=== PATIENT | male | born 1960 | race Two or more races ===

== ENCOUNTER 2024-08-24 06:37 | Emergency (ER) | payer MEDICAID, SELFPAY ==
[2024-08-24] VITALS (8 sets, daily range): BP systolic 157–179; BP diastolic 101–147; PULSE 103–114; RESP 18–24; TEMP 36.5–36.8; O2SAT 93–98; BMI 39.4
--- NOTE | 2024-08-24 06:50 | EKG_ITS ---
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1960 Requested By: Corby Colin Order Number: [id number] Reading MD: Corby Colin Measurements Intervals [place] Rate: 103 P: 66 SD: 183 QRS: 0 QRSD: 114 T: 79 QT: 377 QTc: 496 Interpretive Statements SINUS TACHYCARDIA WITH OCCASIONAL VENTRICULAR PREMATURE COMPLEXES WITH OCCASIONAL SUPRAVENTRICULAR PREMATURE COMPLEXES MODERATE INTRAVENTRICULAR CONDUCTION DELAY [110+ ms QRS DURATION] NONSPECIFIC T-WAVE ABNORMALITY ABNORMAL RHYTHM ECG Compared to ECG 08/07/2019 09:29:42 Ventricular premature complex(es) now present Intraventricular conduction delay now present Sinus rhythm no longer present Atrial abnormality no longer present T-wave abnormality still present /store/S0/[id number].pdf
--- NOTE | 2024-08-24 06:50 | XR_ITS ---
Examination: PA lateral chest 2 views TECHNIQUE: Upright PA lateral chest 2 views Exam date and time: August 24, 2024 0751 hours Comparison September 25, 2023 INDICATIONS: Shortness of breath dizziness beginning 3 weeks ago FINDINGS: Mild enlargement cardiac contour Prominent vascular congestion Fluid in the fissure on the lateral view No lobar pneumonia Intact osseous structures IMPRESSION: Mild heart failure
--- NOTE | 2024-08-24 06:51 | PD.EDRME ---
Rapid Medical Screening Exam [facility] Arrival date/time: 08/24/24 06:37 64-year-old male with a history of congestive heart failure presents to the emergency room with a chief complaint of shortness of breath x 1 month that is progressively gotten worse this last week. Patient states he is taking Lasix but his shortness of breath has not gotten better. Patient also states he feels chest tightness. I have greeted and performed a focused initial assessment of this patient. A comprehensive ED assessment and evaluation of the patient, analysis of all test results, and completion of the medical decision making process will be conducted by additional ED providers. Chief Complaint: Chest Pain Time Seen by Provider: 08/24/24 06:40 Vital signs: Vital Signs Temperature 98.0 F 08/24/24 06:46 Pulse Rate 110 H 08/24/24 06:46 Respiratory Rate 24 H 08/24/24 06:46 Blood Pressure 164/101 H 08/24/24 06:46 Pulse Oximetry (%) 96 08/24/24 06:46 Oxygen Delivery Method Room Air 08/24/24 06:46 Vital signs reviewed by provider: Yes
[2024-08-24 07:35] LABS: Basophils # (Auto) 0.1 Thou/mm3 (0.0-0.2); Basophils % (Auto) 1 % (0-2.5); Eosinophils # (Auto) 0.4 Thou/mm3 (0.0-0.5); Eosinophils % (Auto) 4 % (0-10); Hematocrit 40.2 % (41.0-53.0); Hemoglobin 13.5 g/dL (13.5-16.0); Immature Granulocytes % (Auto) 0 % (0-0); Immature Granulocytes Auto 0.02 Thou/mm3 (0.00-0.00); Lymphocytes # (Auto) 1.6 Thou/mm3 (1.0-4.8); Lymphocytes % (Auto) 18 % (10-50); Mean Corpuscular HGB Conc 33.6 g/dl (31.0-37.0); Mean Corpuscular Hemoglobin 27.9 pg (25.0-35.0); Mean Corpuscular Volume 83 fL (80-100); Monocytes # (Auto) 0.8 Thou/mm3 (0.0-0.8); Monocytes % (Auto) 9 % (0-12); Neutrophils # (Auto) 6.2 Thou/mm3 (1.8-7.7); Neutrophils % (Auto) 68 % (37-80); Nucleated Red Blood Cell % 0 /100 WBC (0); Platelet Count 217 Thou/mm3 (140-440); RDW Standard Deviation 43.9 fL (35.1-43.9); Red Blood Count 4.84 Miln/mm3 (4.50-5.90); White Blood Count 9.1 Thou/mm3 (3.8-10.6)
[2024-08-24 07:50] LABS: INR 1.2 (0.9-1.3); Partial Thromboplastin Time 28.4 Seconds (22.0-36.0)
[2024-08-24 08:40] LABS: Alanine Aminotransferase 21 U/L (10-49); Albumin, Serum 4.3 gm/dL (3.4-4.8); Albumin/Globulin Ratio 1.4 (1.2-2.2); Alkaline Phosphatase 79 U/L (46-116); Anion Gap 11 (7-16); Aspartate Amino Transferase 35 U/L (0-34); B-Type Natriuretic Peptide 482 pg/mL (0-100); BUN/Creatinine Ratio 14 Ratio (12-20); Bilirubin,Total 0.8 mg/dL (0.3-1.2); Blood Urea Nitrogen 19 mg/dL (9-23); Calcium 10.3 mg/dL (8.3-10.6); Calcium (Corrected) 10.3 mg/dL (8.5-10.1); Carbon Dioxide 24.8 mMol/L (20.0-31.0); Chloride 105 mMol/L (98-107); Creatinine (Component) 1.4 mg/dL (0.6-1.3); Estimated Creatinine Clearance 59.8 mL/min (>60); Globulin 3.1 gm/dL (2.3-3.5); Glucose 103 mg/dL (74-106); Magnesium 1.9 mg/dL (1.6-2.6); Osmolality,Calculated 283 (275-295); Potassium 4.2 mMol/L (3.4-5.1); Sodium 141 mMol/L (136-145); Total Protein 7.4 gm/dL (5.7-8.2); eGFR 57 See Note
[2024-08-24 08:43] LABS: Troponin I 0.097 ng/mL (0.0-0.045)
--- NOTE | 2024-08-24 10:02 | PC.NURSE ---
PT HERE WITH C/O DIZZINESS WITH N/V ON AND OFF FOR 1 MONTH. STATES I RN OUT OF MY BP MEDICATION AND SINCE THEY KEEP SWITCHING WHICH DOCTOR I SEE I HAVEN'T GONE BACK. INFORMED OF THE IMPORTANCE OF SEE A DOCTOR AND TO NOT QUIT TAKING BP MEDICATIONS.
[2024-08-24 10:05] LABS: Collection Type, Urine Clean Catch
--- NOTE | 2024-08-24 10:12 | PC.NURSE ---
CALL FROM [facility] IN LAB W/ TROP 0.97. PUT IN NOTES.
[2024-08-24 10:25] LABS: Bilirubin,Urine Negative (Negative); Blood,Urine Negative (Negative); Clarity,Urine Clear (Clear/Hazy); Color,Urine Lt-Yellow (Lt Yel-Yel); Glucose, Urine Negative (Negative); Ketones,Urine Negative (Negative); Leukocyte Esterase,Urine Negative (Negative); Nitrite,Urine Negative (Negative); PH,Urine 6.5 (5.0-7.0); Protein,Urine 1+ (Neg - Trace); RBC,Urine 3 /hpf (0-3); Specific Gravity,Urine 1.018 (1.001-1.035); Squamous Epithelial Cell,Urine < 1 /hpf (0-5); Urobilinogen,Urine Negative mg/dL (0.0-1.0); WBC,Urine 1 /hpf (0-5)
[2024-08-24 10:50] LABS: Amphetamine/Methamp Scrn,U Positive (Negative); Barbiturate Screen,Urine Negative (Negative); Benzodiazepines Screen,Urine Negative (Negative); Benzoylecgonine Screen, Ur Negative (Negative); Fentanyl Screen,Urine Negative (Negative); Opiate Screen,Urine Negative (Negative); THC Screen,Urine Negative (Negative)
--- NOTE | 2024-08-24 10:58 | PC.CC ---
Patient is a 64 year-old male who presents to the hospital for SOB, Chest Tightness, Dizzy. Shantal HERZOG made gfxy-bh-nyge contact with patient. ASW introduced self, role, and reason for visit. Patient appeared alert and oriented to self, location, and situation. Patient was pleasant and engaged in initial assessment. Patient reports he lives at home with his , Teresita Ingram . Patient report his would be his medical decision maker in the event he is unable to make his own medical decisions. Patient reports at home he is able to ambulate independently and complete his own ADLs. Patient does not use any DME at home. Patient receives primary care with Jose Antonio Schaffer and uses [facility] on [address] for prescription medications. Upond discharge the patient plans to return back home. child protective services social worker to follow up with any discharge needs.
--- NOTE | 2024-08-24 11:16 | PC.NURSE ---
PT WITH C/O CHEST PAIN AND DIFF BREATHIG NOW. REPEAT EKG DONE. DR. GONZALEZ OFF UNIT AND WILL INFORM MD WHEN BACK
--- NOTE | 2024-08-24 11:18 | EKG_ITS ---
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
--- NOTE | 2024-08-24 11:48 | PD.EDADULT ---
ED General RME/HPI General Chief complaint: Chest Pain Stated complaint: SOB, CHEST TIGHTNESS, DIZZY Time Seen by Provider: 08/24/24 06:40 Arrival date/time: 08/24/24 06:37 RME / HPI RME / HPI narrative: Patient is a 64 years old male with PMH of congestive heart failure, hypertension, meth use presented to the ED complaining of shortness of breath for 1 month that is progressively gotten worse within the last several days. He reports he stopped using meth several months ago but accidentally snored it 2 days ago. He reports his SOB got significantly worse after it prompting him to come to the ED. He also reports dull chest discomfort for the last several days. He denies fever, chills, abdominal pain, nausea, vomiting, diarrhea, diaphoresis. He reports he is compliant with his home medications including Lasix. Related Data Previous Rx's ?Medication ?Instructions ?Recorded furosemide 40 mg tablet 40 mg PO QDAY #3 tabs 09/25/23 potassium chloride 20 mEq oral 20 meq PO QDAY #3 ea 09/25/23 packet Allergies Allergy/AdvReac Type Severity Reaction Status Date / Time No Known Allergies Allergy Verified 08/06/19 14:57 Review of Systems Review of Systems Systems Reviewed: All systems reviewed, normal except as documented ED Exam Narrative Physical exam: Gen: Well-developed and well-nourished obese male. HEENT: NCAT, PERRLA, EOMI, MMM, anicteric conjunctivae. CVS: normal S1 and S2. Regular tachycardia. No M/R/G. Resp: mild crackles B/L. No rhonchi, rales or wheezing. Abd: soft, obese, non-tender, non-distended. BS+ in all 4 quadrants. MSK: Good ROM in BUE & BLE. No edema or rash. Neuro: CN II-XII grossly intact. Strength 5/5 in BUE & BLE. Alert and oriented x3. Course Course Course Narrative: 0657: EKG showed sinus tachycardia with non-specific ST changes. CXR showed CHF pattern. 0720: Troponin I 0.097. 1121: repeat EKG showed sinus tachycardia with non-specific ST changes. 1230: Lasix 40 mg IV and nitro patch given. 1300: Troponin I 0.087. 1500: patient reports his symptoms improved significantly, he is not short of breath anymore and denies chest pain. Clinically he looks more comfortable, RR 18, heart rate in 90s, BP 160/100. Quality Measures none Orders Category Date Time Status Bedside COVID-19 Antigen Test NOW Care 08/24/24 06:50 Active Bedside Influenza A&B Antigen Test NOW Care 08/24/24 06:50 Completed EKG (ED ONLY) *Do not use* NOW Care 08/24/24 06:50 Completed EKG (ED ONLY) *Do not use* NOW Care 08/24/24 11:18 Completed Strict Intake and Output Routine Care 08/24/24 11:44 Ordered EKG (ED Only) Stat Exams 08/24/24 06:50 Draft EKG (ED Only) Stat Exams 08/24/24 11:18 Draft XR chest 2V Stat Exams 08/24/24 06:50 Completed B-Type Natriuretic Peptide Stat Lab 08/24/24 07:20 Completed CBC Stat Lab 08/24/24 07:20 Completed Comprehensive Metabolic Panel Stat Lab 08/24/24 07:20 Completed Drug Screen,Urine Stat Lab 08/24/24 09:55 Completed Magnesium Stat Lab 08/24/24 07:20 Completed Partial Thromboplastin Time Stat Lab 08/24/24 07:20 Completed Prothrombin Time with INR Stat Lab 08/24/24 07:20 Completed Troponin I Stat Lab 08/24/24 07:20 Completed Troponin I Stat Lab 08/24/24 12:58 Completed Urinalysis Stat Lab 08/24/24 09:55 Completed Furosemide Inj [Lasix Inj] Med 08/24/24 11:43 Discontinued 40 mg IVP X1 ONE Nitroglycerin Oint 2% [Nitro-paste Oint 2%] Med 08/24/24 12:19 Discontinued 2 inch TOP X1 ONE Nitroglycerin [Nitro-dur Patch] Med 08/24/24 11:43 Discontinued 0.4 mg TOP X1 ONE Vital Signs Vital signs: Vital Signs Temperature 98.0 F 08/24/24 06:46 Pulse Rate 110 H 08/24/24 06:46 Respiratory Rate 24 H 08/24/24 06:46 Blood Pressure 164/101 H 08/24/24 06:46 Pulse Oximetry (%) 96 08/24/24 06:46 Oxygen Delivery Method Room Air 08/24/24 06:46 Procedures -ED EKG Interpretation #1: Date of EK08/24/24 Time of EK:57 Rate: 103 Interpretation: Reviewed by me EKG Impression: PVCs, Sinus tachycardia and Non-specific ST-T #2: Date of EK08/24/24 Time of EK:21 Rate: 100 Interpretation: Reviewed by me EKG Impression: PVCs, Sinus tachycardia and Non-specific ST-T MDM Patient data External records reviewed:: [facility] previous records Clinical information provided by:: patient and family Social determinants that could affect healthcare access:: substance use Patient has the following chronic illnesses:: congestive heart failure, hypertension, meth use How is presenting disease/condition affected by chronic disease/condition?: caused by Evaluation data The following diagnostics were reviewed and interpreted by me:: lab results, radiology exam(s) and EKG tracing(s) Lab and/or radiology exams considered but not ordered:: CTA Interpretation Summary: CHF exacerbation, troponinemia (downtrended), meth positive. Medications Medications considered but not ordered:: aspirin Medication administrations:: Medication Administration History Discontinued Medications Furosemide (Furosemide Inj 10 Mg/Ml 4ml Vial) 40 mg IVP X1 ONE Stop: 08/24/24 11:44 Last Admin: 08/24/24 12:25 Dose: 40 mg Documented By: YAZMIN Nitroglycerin (Nitroglycerin 0.4 Mg/Hr Patch.Td24) 0.4 mg TOP X1 ONE Stop: 08/24/24 11:44 Last Admin: 08/24/24 12:20 Dose: Not Given Documented By: YAZMIN Non-Admin Reason: Cancelled by Provider Nitroglycerin (Nitroglycerin Oint 2% 1 Inch Packet) 2 inch TOP X1 ONE Stop: 08/24/24 12:20 Last Admin: 08/24/24 12:23 Dose: 2 inch Documented By: YAZMIN as above Consultations Consultation(s) initiated? (list below): No Diagnosis Differential Diagnosis ED Complaint MDM: CHF, CAP, ACS, pericarditis Most likely diagnosis given after review of the tests above:: CHF exacerbation Admission Indicated Admission indicated?: not indicated Explain why admission is indicated or not indicated:: Patient's symptoms are likely related to meth abuse and CHF exacerbation as a result of it. His condition significantly improved after Lasix 40 mg IV and troponin I dpwntrended. He will need to follow up with cardiology as soon as possible for CHF therapy optimization. He was instructed to increase his Lasix 20 mg daily to twice daily for 1 week. Admission Request Was there a request for admission?: No Disposition Plan Disposition Plan: Discharge Discharge Attestation Discharge Attestation: The patient and all family members were given an opportunity to ask questions and understood the discharge instructions. Discharge instructions specifically effects, indications for sooner follow up or return to the emergency department, and the expected course of current diagnosis. Patient condition: Stable Medical Decision Making MDM Narrative MDM Narrative: This 64-year-old male with a history of congestive heart failure, hypertension, and methamphetamine use presented with progressively worsening shortness of breath over the past month, exacerbated after meth use 2 days ago. His symptoms were also accompanied by dull chest discomfort. Evaluation revealed sinus tachycardia with nonspecific ST changes on EKG, mild crackles on exam, and a CHF pattern on chest X-ray. Troponin levels were mildly elevated but trended downward after treatment, indicating no acute cardiac ischemia. His symptoms improved significantly following administration of IV Lasix and a nitroglycerin patch. The patient's condition is likely due to CHF exacerbation triggered by meth use. He has been stabilized with improvement in his symptoms and is deemed appropriate for discharge. He is advised to increase his Lasix to 20 mg twice daily for one week, follow up with cardiology promptly to optimize his CHF therapy, and continue his other prescribed medications. Follow-up with his primary care provider within a week is recommended, and he is counseled to cease methamphetamine use to prevent further exacerbations and complications. Differential Diagnosis Differential Diagnosis: CHF, CAP, ACS, pericarditis Lab Data 08/24/24 07:20 08/24/24 07:20 Labs: Lab Results 08/24/24 08/24/24 08/24/24 Range/Units 07:20 09:55 12:58 WBC 9.1 (3.8-10.6) Thou/mm3 RBC 4.84 (4.50-5.90) Miln/mm3 Hgb 13.5 (13.5-16.0) g/dL Hct 40.2 L (41.0-53.0) % MCV 83 (80-100) fL MCH 27.9 (25.0-35.0) pg MCHC 33.6 (31.0-37.0) g/dl RDW Std Deviation 43.9 (35.1-43.9) fL Plt Count 217 (140-440) Thou/mm3 Neut % (Auto) 68 (37-80) % Lymph % (Auto) 18 (10-50) % [place] % (Auto) 9 (0-12) % Eos % (Auto) 4 (0-10) % Baso % (Auto) 1 (0-2.5) % Neut # (Auto) 6.2 (1.8-7.7) Thou/mm3 Lymph # (Auto) 1.6 (1.0-4.8) Thou/mm3 [place] # (Auto) 0.8 (0.0-0.8) Thou/mm3 Eos # (Auto) 0.4 (0.0-0.5) Thou/mm3 Baso # (Auto) 0.1 (0.0-0.2) Thou/mm3 Immature Gran # (Auto) 0.02 H (0.00-0.00) Thou/mm3 Absolute Nucleated RBC 0.00 (0.00-0.00) Thou/mm3 Immature Gran % 0 (0-0) % Nucleated RBC % 0 (0) /100 WBC PT 13.0 H (9.0-12.2) Seconds INR 1.2 (0.9-1.3) APTT 28.4 (22.0-36.0) Seconds Sodium 141 (136-145) mMol/L Potassium 4.2 (3.4-5.1) mMol/L Chloride 105 (98-107) mMol/L Carbon Dioxide 24.8 (20.0-31.0) mMol/L Anion Gap 11 (7-16) BUN 19 (9-23) mg/dL Creatinine 1.4 H (0.6-1.3) mg/dL Estim Creat Clear Calc 59.8 L (>60) mL/min eGFR 57 L (60 - ) See Note BUN/Creatinine Ratio 14 (12-20) Ratio Glucose 103 (74-106) mg/dL Calculated Osmolality 283 (275-295) Calcium 10.3 (8.3-10.6) mg/dL Corrected Calcium 10.3 H (8.5-10.1) mg/dL Magnesium 1.9 (1.6-2.6) mg/dL Total Bilirubin 0.8 (0.3-1.2) mg/dL AST 35 H (0-34) U/L ALT 21 (10-49) U/L Alkaline Phosphatase 79 (46-116) U/L Troponin I 0.097 H* 0.087 H* (0.0-0.045) ng/mL B-Natriuretic Peptide 482 H* (0-100) pg/mL Total Protein 7.4 (5.7-8.2) gm/dL Albumin 4.3 (3.4-4.8) gm/dL Globulin 3.1 (2.3-3.5) gm/dL Albumin/Globulin Ratio 1.4 (1.2-2.2) Ur Collection Type Clean Catch Urine Color Lt-Yellow (Lt Yel-Yel) Urine Clarity Clear (Clear/Hazy) Urine pH 6.5 (5.0-7.0) Ur Specific [place] 1.018 (1.001-1.035) Urine Protein 1+ A (Neg - Trace) Urine Glucose (UA) Negative (Negative) Urine Ketones Negative (Negative) Urine Blood Negative (Negative) Urine Nitrite Negative (Negative) Urine Bilirubin Negative (Negative) Urine Urobilinogen (Auto) Negative (0.0-1.0) mg/dL Ur Leukocyte Esterase Negative (Negative) Urine RBC 3 (0-3) /hpf Urine WBC 1 (0-5) /hpf Ur Squamous Epith Cells < 1 (0-5) /hpf Urine Bacteria None (None) Urine Opiates Screen Negative (Negative) Urine Fentanyl Screen Negative (Negative) Ur Barbiturates Screen Negative (Negative) U Amphetamin/Meth Scrn Positive A (Negative) U Benzodiazepines Scrn Negative (Negative) U Cocaine Metab Screen Negative (Negative) U Marijuana (THC) Screen Negative (Negative) Discharge Plan Plan Patient Disposition: HOME (Self Care) Patient condition on transfer: Stable Prescriptions/Referrals Prescriptions/Med Rec: No Action furosemide 40 mg tablet 40 mg PO QDAY Qty: 3 0RF potassium chloride 20 mEq packet 20 meq PO QDAY Qty: 3 0RF Referrals: Jose Antonio Schaffer PA-C [Primary Care Provider] - In 1 week Problem List Clinical Impression: CHF exacerbation, Methamphetamine abuse Patient/Caregiver Discharge Instructions Education Materials: Understanding Methamphetamine ..., ED Drug Abuse, Heart Failure Additional Instructions: Start taking Lasix 20 mg twice daily for 1 week. 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 Continue other home medications as prescribed. Follow up with PCP within 1 week. Stop using methamphetamine. Print Language: Portuguese Stand Alone Forms: Shannan Award Info., Patient Portal Info Letter
[2024-08-24] MEDS: NITROGLYCERIN OINT 2% 1 INCH PACKET 2 INCH TOP (12:23)
[2024-08-24] MEDS: FUROSEMIDE INJ 10 MG/ML 4ML VIAL 40 MG IVP (12:25)
[2024-08-24 13:35] LABS: Troponin I 0.087 ng/mL (0.0-0.045)
--- NOTE | 2024-08-24 13:39 | PC.NURSE ---
PT STATING I'M READY TO LEAVE. INFORMED PT THAT LAB FOR HEADT (TROPONIN) IS HIGH AND THAT HE MAY HAVE HAD SMALL HEART ATTACK BACK WHEN HIS PAIN FIRST STARTED. WILL HAVE MD TALK WITH PT ABOUT RESULTS
== END 2024-08-24 15:51 | disposition home or self-care (01) ==
PROVIDERS: Nurse Practitioner Family; Student in an Organized Health Care Education/Training Program; Emergency Provider Emergency Medicine; PCP Physician Assistant
DX: I11.0 Hypertensive heart disease with heart failure (principal); I50.9 Heart failure, unspecified; F15.10 Other stimulant abuse, uncomplicated; R00.0 Tachycardia, unspecified; I49.3 Ventricular premature depolarization
CPT/HCPCS: 36415; 71046; 80053; 80307; 81001; 83735; 83880; 84484; 85025; 85610; 85730; 87400; 87811; 93005; 96374; 99284; J1940; A9270